=== PATIENT | female | born 1975 | race American Indian/Alaskan Native ===

== ENCOUNTER 2019-02-17 20:24 | Emergency (ER) | payer SELFPAY ==
--- NOTE | 2019-02-17 20:43 | Event Note ---
ED Screening Note Date of service: 02/17/19 Time: 20:41 ED Screening Note: This is a 43 y.o. F. that presents to the ER with left flank pain. Nonsmoker This initial assessment/diagnostic orders/clinical plan/treatment(s) is/are subject to change based on patients health status, clinical progression and re- assessment by fellow clinical providers in the ED. Further treatment and workup at subsequent clinical providers discretion. Patient/guardian urged not to elope from the ED as their condition may be serious if not clinically assessed and managed. Initial orders include: Labs and CT of abdomen and pelvis
[2019-02-17 21:07] LABS: Basophils % (Auto) 0.7 % (0.0-1.8); Eosinophils # (Auto) 0.2 K/mm3 (0.0-0.4); Eosinophils % (Auto) 3.2 % (0.0-4.3); Hematocrit 36.3 % (30.3-42.9); Hemoglobin 11.7 gm/dl (10.1-14.3); Lymphocytes # (Auto) 2.7 K/mm3 (1.2-5.4); Lymphocytes % (Auto) 43.5 % (13.4-35.0); Mean Corpuscular HGB Conc 32 % (30-34); Mean Corpuscular Volume 87 fl (79-97); Monocytes # (Auto) 0.5 K/mm3 (0.0-0.8); Monocytes % (Auto) 7.9 % (0.0-7.3); Platelet Count 231 K/mm3 (140-440); Red Blood Count 4.17 M/mm3 (3.65-5.03); Red Cell Distribution Width 13.6 % (13.2-15.2)
[2019-02-17 21:20] LABS: HCG Qualitative,Urine Negative (Negative)
[2019-02-17 21:23] LABS: Bilirubin,Urine NEG (Negative); Blood,Urine NEG (Negative); Color,Urine Yellow (Yellow); Mucus,Urine 3+ /HPF; Protein,Urine <15 mg/dL mg/dL (Negative); Urobilinogen,Urine < 2.0 mg/dL (<2.0)
[2019-02-17 21:32] LABS: Alanine Aminotransferase 15 units/L (7-56); Albumin 4.2 g/dL (3.9-5); BUN/Creatinine Ratio 15; Blood Urea Nitrogen 12 mg/dL (7-17); Calcium 9.2 mg/dL (8.4-10.2); Hemolysis Index 4
[2019-02-17] MEDS ORDERED: TORADOL IM ONE (22:03)
[2019-02-17] MEDS ORDERED: ZOFRAN ODT PO ONE (22:04)
--- NOTE | 2019-02-17 23:16 | Cat Scan Report ---
CT of the abdomen and pelvis without contrast INDICATION: Left flank pain x1 month COMPARISON: None FINDINGS: Lung bases are clear. The liver, spleen, pancreas, adrenal glands and left kidney appear no rmal. 2 stones are seen in the right kidney without obstruction. No hydronephrosis or perinephric amairani ma. No gross renal masses. No definite gallbladder or biliary tree abnormality. No fluid or adenopath y in the upper abdomen CT of the pelvis shows no ureteral stone. No stone fragments seen in the bladder. Uterus has been rem vladimir. No diverticulosis or diverticulitis. Appendix is seen and is normal. No pelvic or inguinal bao opathy. No significant skeletal lesion. IMPRESSION: Right nephrolithiasis. No left renal calculus or inflammatory process. Automated exposure control was utilized to diminish radiation dose. Signer Name: Brannon Trujillo MD Signed: 02/17/2019 11:12 PM Workstation Name: [id number]
--- NOTE | 2019-02-17 23:42 | Emergency Department Report ---
ED Abdominal Pain HPI - General Chief Complaint: Abdominal Pain Stated Complaint: LEFT HAND PAIN Time Seen by Provider: 02/17/19 20:40 Source: patient Mode of arrival: Ambulatory Limitations: No Limitations - History of Present Illness Initial Comments: Patient is a 43-year-old [place] female with a history of kidney stones who presents to the ED with acute onset left flank. But it is to the left lower quadrant for the last 1 week. Patient denies nausea, vomiting, diarrhea, dysuria, urinary frequency and urgency, hematuria, vaginal bleeding, fever, chills, history of lifting or traumatic injury, change in vision or neck pain, chest pain and shortness of breath or vaginal discharge. Patient also complains of diffuse itching skin intermittently for the last 1 month. Patient states that this occurs mainly at night. MD Complaint: abdominal pain, flank pain (left flank pain) -: Gradual, week(s) (1) Location: suprapubic, L flank Radiation: suprapubic, L flank Migration to: no migration Severity scale (0 -10): 8 Quality: cramping, sharp Consistency: intermittent Improves With: nothing Worsens With: nothing Associated Symptoms: denies other symptoms. denies: nausea, vomiting, diarrhea, fever, chills, dysuria, hematemesis, hematochezia, melena, hematuria, anorexia, other - Related Data Previous Rx's Medication Instructions Recorded Last Taken Type Acetaminophen/Codeine [Tylenol 1 tab PO Q6H PRN #12 tab 02/17/19 Unknown Rx /Codeine # 3 tab] Ketorolac [Toradol] 10 mg PO Q8H PRN #20 tablet 02/17/19 Unknown Rx Ondansetron [Zofran Odt] 4 mg PO Q6HR PRN #15 tab.rapdis 02/17/19 Unknown Rx Tamsulosin [Flomax] 0.4 mg PO QDAY #7 cap 02/17/19 Unknown Rx diphenhydrAMINE [Benadryl CAP] 25 mg PO Q6HR PRN #30 capsule 02/17/19 Unknown Rx Allergies Allergy/AdvReac Type Severity Reaction Status Date / Time No Known Allergies Allergy Unverified 02/17/19 20:43 ED Review of Systems ROS: Stated complaint: LEFT HAND PAIN Other details as noted in HPI Constitutional: denies: chills, fever Eyes: denies: eye pain, eye discharge, vision change ENT: denies: ear pain, throat pain Respiratory: denies: cough, shortness of breath, wheezing Cardiovascular: denies: chest pain, palpitations Endocrine: no symptoms reported Gastrointestinal: abdominal pain (left flank pain). denies: nausea, diarrhea Genitourinary: denies: urgency, dysuria, frequency, discharge, abnormal menses Musculoskeletal: back pain. denies: joint swelling, arthralgia Skin: denies: rash, lesions Neurological: denies: headache, weakness, paresthesias Psychiatric: denies: anxiety, depression Hematological/Lymphatic: denies: easy bleeding, easy bruising ED Past Medical Hx - Past Medical History Previous Medical History?: No - Surgical History Past Surgical History?: Yes Additional Surgical History: Hysterectomy. Tubal Ligation - Social History Smoking Status: Never Smoker Substance Use Type: None - Medications Home Medications: Home Medications Medication Instructions Recorded Confirmed Last Taken Type Acetaminophen/Codeine [Tylenol 1 tab PO Q6H PRN #12 tab 02/17/19 Unknown Rx /Codeine # 3 tab] Ketorolac [Toradol] 10 mg PO Q8H PRN #20 tablet 02/17/19 Unknown Rx Ondansetron [Zofran Odt] 4 mg PO Q6HR PRN #15 tab.rapdis 02/17/19 Unknown Rx Tamsulosin [Flomax] 0.4 mg PO QDAY #7 cap 02/17/19 Unknown Rx diphenhydrAMINE [Benadryl CAP] 25 mg PO Q6HR PRN #30 capsule 02/17/19 Unknown Rx ED Physical Exam - General Limitations: No Limitations General appearance: alert, in no apparent distress - Head Head exam: Present: atraumatic, normocephalic, normal inspection - Eye Eye exam: Present: normal appearance, PERRL, EOMI Pupils: Present: normal accommodation - ENT ENT exam: Present: normal exam, normal orophraynx, mucous membranes moist, TM's normal bilaterally, normal external ear exam - Neck Neck exam: Present: normal inspection, full ROM. Absent: tenderness - Respiratory Respiratory exam: Present: normal lung sounds bilaterally. Absent: respiratory distress, wheezes, rhonchi, stridor, chest wall tenderness, accessory muscle use, decreased breath sounds - Cardiovascular Cardiovascular Exam: Present: regular rate, normal rhythm, normal heart sounds. Absent: systolic murmur, diastolic murmur, rubs, gallop - GI/Abdominal GI/Abdominal exam: Present: soft, tenderness (left flank, mild), normal bowel sounds. Absent: hyperactive bowel sounds, hypoactive bowel sounds, organomegaly - Rectal Rectal exam: Present: deferred - Extremities Exam Extremities exam: Present: normal inspection, full ROM, normal capillary refill - Back Exam Back exam: Present: normal inspection, full ROM. Absent: tenderness - Neurological Exam Neurological exam: Present: alert, oriented X3, CN II-XII intact, normal gait, reflexes normal - Psychiatric Psychiatric exam: Present: normal affect, normal mood - Skin Skin exam: Present: warm, dry, intact, normal color. Absent: rash ED Course Vital Signs 02/17/19 02/17/19 20:33 23:05 Temperature 97.5 F L Pulse Rate 78 Respiratory 20 16 Rate Blood Pressure 148/92 O2 Sat by Pulse 100 Oximetry - Reevaluation(s) Reevaluation #1: 02/17/19 23:40 This is a 43-year-old female who presented to the ED with left flank pain that radiates to the left lower quadrant area with diffuse itching on his cane for the last 1 week. Patient is alert and oriented 3 and is not in distress. Left wrist is also reviewed and are all unremarkable with no acute findings. Abdomen pelvis CT scan without contrast to rule out kidney stones shows nonobstructing right kidney stones. No inflammatory changes. Patient was treated for pain in the ED and discharged home on pain medications and advised to follow-up with her primary care physician in 5-7 days for reevaluation. Patient was advised to return to the ED immediately if symptoms get worse. ED Medical Decision Making - Lab Data Result diagrams: 02/17/19 20:58 02/17/19 20:58 - Radiology Data Radiology results: report reviewed, image reviewed Findings [facility] [address] [place] [address] Cat Scan Report Signed Patient: JORGE LUIS MIRAMONTES MR#: [id number] : 1975 Acct:[id number] Age/Sex: 43 / F ADM Date: 02/17/19 Loc: ED Attending Dr: Ordering Physician: ENRIQUE BHATTI Date of Service: 02/17/19 Procedure(s): CT abdomen pelvis wo con Accession Number(s): [id number] cc: KARINE NOYOLAENRIQUE CT of the abdomen and pelvis without contrast INDICATION: Left flank pain x1 month COMPARISON: None FINDINGS: Lung bases are clear. The liver, spleen, pancreas, adrenal glands and left kidney appear normal. 2 stones are seen in the right kidney without obstruction. No hydronephrosis or perinephric edema. No gross renal masses. No definite gallbladder or biliary tree abnormality. No fluid or adenopathy in the upper abdomen CT of the pelvis shows no ureteral stone. No stone fragments seen in the bladder. Uterus has been removed. No diverticulosis or diverticulitis. Appendix is seen and is normal. No pelvic or inguinal adenopathy. No significant skeletal lesion. IMPRESSION: Right nephrolithiasis. No left renal calculus or inflammatory process. Automated exposure control was utilized to diminish radiation dose. Signer Name: Brannon Trujillo MD Signed: 02/17/2019 11:12 PM Workstation Name: [id number] Transcribed By: EDWAR Dictated By: Brannon Trujillo MD Electronically Authenticated By: Brannon Trujillo MD Signed Date/Time: 02/17/19 2020 - Medical Decision Making This is a 43-year-old female who presented to the ED with left flank pain that radiates to the left lower quadrant area with diffuse itching on his cane for the last 1 week. Patient is alert and oriented 3 and is not in distress. Left wrist is also reviewed and are all unremarkable with no acute findings. Abdomen pelvis CT scan without contrast to rule out kidney stones shows nonobstructing right kidney stones. No inflammatory changes. This patient's complaint was left flank pain, she may have had left kidney stones which over the past. Patient was treated for pain in the ED and discharged home on pain medications and advised to follow-up with her primary care physician in 5-7 days for reevaluation. Patient was advised to return to the ED immediately if symptoms get worse. - Differential Diagnosis kidney stones, left flank pain, abdominal pain, acute UTI Critical care attestation.: If time is entered above; I have spent that time in minutes in the direct care of this critically ill patient, excluding procedure time. ED Disposition Clinical Impression: Acute flank pain, Kidney stone on right side, Itching with irritation Disposition: DC-01 TO HOME OR SELFCARE Is pt being admited?: No Does the pt Need Aspirin: No Condition: Stable Instructions: Abdominal Pain (ED), Kidney Stones (ED), Flank Pain (ED) Additional Instructions: Take medications with food, drink plenty of fluids and follow-up with your primary care physician in 5-7 days for reevaluation. Return to the ED immediately if symptoms get worse. Consider following up with Dr. Kendrick, the Urologist if symptoms get worse. Prescriptions: diphenhydrAMINE [Benadryl CAP] 25 mg PO Q6HR PRN #30 capsule PRN Reason: Itching Tamsulosin [Flomax] 0.4 mg PO QDAY #7 cap Ketorolac [Toradol] 10 mg PO Q8H PRN #20 tablet PRN Reason: Pain Acetaminophen/Codeine [Tylenol /Codeine # 3 tab] 1 tab PO Q6H PRN #12 tab PRN Reason: Pain , Severe (7-10) Ondansetron [Zofran Odt] 4 mg PO Q6HR PRN #15 tab.rapdis PRN Reason: Nausea Referrals: VIPUL KENDRICK MD [Staff Physician] - 3-5 Days Time of Disposition: 23:45 Print Language: CROATIAN
[2019-02-18 00:10] VITALS: BP 151/99
== END 2019-02-18 00:09 | disposition home or self-care (01) ==
LOC: ED 20:24
DX: N20.0 Calculus of kidney (principal); Z87.442 Personal history of urinary calculi; Z90.710 Acquired absence of both cervix and uterus; Z98.51 Tubal ligation status; Z79.899 Other long term (current) drug therapy
CPT/HCPCS: 36415; 74176; 80053; 81001; 81025; 83690; 85025; 96372; 99284; J1885; Q0162